=== PATIENT | female | born 1960 | race Asian ===

== ENCOUNTER 2016-11-12 08:09 | Outpatient (CLI) | payer OTHER | END 2016-11-12 19:55 | disposition home or self-care (01) | LOC: MAMMO 08:09 | DX: Z12.31 Encounter for screening mammogram for malignant neoplasm of breast (principal); Z13.820 Encounter for screening for osteoporosis | CPT/HCPCS: G0202-TC ==

== ENCOUNTER 2018-09-28 09:13 | Outpatient (CLI) | payer OTHER ==
[2018-09-28 09:39] LABS: PLATELET COUNT 229 K/uL (152-353)
[2018-09-28 10:00] LABS: POTASSIUM 4.3 mmol/L (3.6-5.2)
== END 2018-09-28 23:34 | disposition home or self-care (01) ==
LOC: LABW 09:13
PROVIDERS: Nurse Practitioner
DX: I10 Essential (primary) hypertension (principal); E11.9 Type 2 diabetes mellitus without complications; E78.00 Pure hypercholesterolemia, unspecified; E53.8 Deficiency of other specified B group vitamins; E55.9 Vitamin D deficiency, unspecified; R53.82 Chronic fatigue, unspecified
CPT/HCPCS: 36415; 80053; 80061; 82306; 82607; 83036; 84443; 85027

== ENCOUNTER 2019-12-21 13:45 | Outpatient (CLI) | payer OTHER ==
[2019-12-21 14:46] LABS: PLATELET COUNT 240 K/uL (152-353)
[2019-12-21 15:17] LABS: POTASSIUM 4.9 mmol/L (3.6-5.2)
== END 2019-12-21 23:12 | disposition home or self-care (01) ==
LOC: LAB 13:45
PROVIDERS: Nurse Practitioner Family
DX: E11.9 Type 2 diabetes mellitus without complications (principal); E78.5 Hyperlipidemia, unspecified; I10 Essential (primary) hypertension; F41.9 Anxiety disorder, unspecified; E78.00 Pure hypercholesterolemia, unspecified; Z79.899 Other long term (current) drug therapy; E55.9 Vitamin D deficiency, unspecified; R53.81 Other malaise; R53.83 Other fatigue; E53.8 Deficiency of other specified B group vitamins
CPT/HCPCS: 80053; 80061; 82306; 82607; 83036; 84439; 84443; 84481; 85027

== ENCOUNTER 2020-06-18 14:40 | Outpatient (CLI) | payer OTHER ==
[2020-06-18 15:07] LABS: PLATELET COUNT 239 K/uL (152-353)
[2020-06-18 15:20] LABS: POTASSIUM 5.1 mmol/L (3.6-5.2)
== END 2020-06-18 19:27 | disposition home or self-care (01) ==
LOC: LAB 14:40
PROVIDERS: ATTEND Nurse Practitioner Family
DX: E78.5 Hyperlipidemia, unspecified (principal); I10 Essential (primary) hypertension; E11.9 Type 2 diabetes mellitus without complications; F41.9 Anxiety disorder, unspecified; Z79.899 Other long term (current) drug therapy; R53.83 Other fatigue; E55.9 Vitamin D deficiency, unspecified; E53.8 Deficiency of other specified B group vitamins
CPT/HCPCS: 80053; 80061; 82306; 83036; 84439; 84443; 84481; 85027

== ENCOUNTER 2021-01-14 14:52 | Outpatient (CLI) | payer OTHER ==
[2021-01-14 15:09] LABS: PLATELET COUNT 240 K/uL (152-353)
[2021-01-14 15:40] LABS: POTASSIUM 4.8 mmol/L (3.6-5.2)
== END 2021-01-14 19:31 | disposition home or self-care (01) ==
LOC: LAB 14:52
PROVIDERS: ATTEND Nurse Practitioner Family
DX: E78.5 Hyperlipidemia, unspecified (principal); I10 Essential (primary) hypertension; E11.9 Type 2 diabetes mellitus without complications; F41.9 Anxiety disorder, unspecified; Z79.899 Other long term (current) drug therapy; R53.83 Other fatigue; E55.9 Vitamin D deficiency, unspecified; R53.81 Other malaise; E53.8 Deficiency of other specified B group vitamins
CPT/HCPCS: 80053; 80061; 82306; 82607; 83036; 84439; 84443; 85027